=== PATIENT | female | born 1995 | race Two or more races ===

== ENCOUNTER 2021-07-03 10:45 | Outpatient (RCR) | payer OTHER, MEDICAID, SELFPAY | END 2021-09-12 20:41 | disposition home or self-care (01) | LOC: ANHOBOP 10:45 | PROVIDERS: Visit Provider Obstetrics & Gynecology | DX: O24.419 Gestational diabetes mellitus in pregnancy, unspecified control (principal); Z3A.00 Weeks of gestation of pregnancy not specified | CPT/HCPCS: 59025 ==

== ENCOUNTER 2021-08-19 06:14 | Inpatient (IN) | payer OTHER, SELFPAY ==
[2021-08-19] VITALS (159 sets, daily range): BP systolic 58–213; BP diastolic 14–181; PULSE 62–275; TEMP 36.6–37.1; O2SAT 95–100; BMI 33.5
--- OUTSIDE RECORDS SUMMARY | 2021-08-19 06:24 | XMS_ITS | Encounter Summary ---
:1995 Author Reason for Visit NST [id number] EDC 08/26/2021 done for GDM thyroid Assessment and Plan 1. Gestational diabetes mellitus , class A>1< ? non-stress test Discussion Note: None recorded.Patient educational handouts: No information available. Plan of Care Reminders Provider Appointments Ob Routine Diamond No 08/25/2021 MD Chu 1:45PM Lab None ? ? recorded. Referral None ? ? recorded. Procedures None ? ? recorded. Surgeries None ? ? recorded. Imaging Non-stress [place] 08/11/2021 Medications Name Start Date ? ? Humulin N NPH U-100 Insulin (isophane susp) 100 unit/m L subcutaneous ? INJECT 12 UNITS UNDER THE SKIN EVERY MORNING AND 52 U NITS AT HS insulin syringe U-100 with needle 0.5 mL 31 gauge x ? USE DIRECTED Medications Administered None recorded. Vitals Height Weight BMI Blood Pressure 5 ft 1.5 in 179 lbs 33.3 kg/m2 122/84 mm[Hg] Results Lab Results None recorded. Allergies None recorded. Problems Name Status Onset Date Source ? Active 04/16/2021 ? Hypothyroidism Active ? ?
--- OUTSIDE RECORDS SUMMARY | 2021-08-19 06:24 | XMS_ITS | Encounter Summary ---
:1995 Author Reason for Visit None recorded. Assessment and Plan 1. Gestational diabetes mellitus , class A>2< ? non-stress test Discussion Note: None recorded.Patient educational handouts: No information available. Plan of Care Reminders Provider Appointments Ob Routine D[place] No 08/25/2021 MD Chu 1:45PM Lab None ? ? recorded. Referral None ? ? recorded. Procedures None ? ? recorded. Surgeries None ? ? recorded. Imaging Non-stress [place] 08/04/2021 Medications Name Start Date ? ? Humulin N NPH U-100 Insulin (isophane susp) 100 unit/m L subcutaneous ? INJECT 12 UNITS UNDER THE SKIN EVERY MORNING AND 52 U NITS AT HS insulin syringe U-100 with needle 0.5 mL 31 gauge x 5/ 16 ? USE DIRECTED Medications Administered None recorded. Vitals None recorded. Results Lab Results None recorded. Allergies None recorded. Problems Name Status Onset Date Source ? Active 04/16/2021 ? Hypothyroidism Active ? ? Gestational Diabetes Mellitus Active ? ? Procedures Date Name Performed by ?
--- OUTSIDE RECORDS SUMMARY | 2021-08-19 06:24 | XMS_ITS | Encounter Summary ---
:1995 Author Reason for Visit OB visit Assessment and Plan 1. Gestational diabetes mellitus 2. Hypothyroidism Discussion Note: None recorded.Patient educational handouts: No information available. Plan of Care Reminders Provider Appointments Ob Routine Diamond No 08/25/2021 MD Chu 1:45PM Lab None ? ? recorded. Referral None ? ? recorded. Procedures None ? ? recorded. Surgeries None ? ? recorded. Imaging None ? ? recorded. Medications Name Start Date ? ? Humulin [...]
--- OUTSIDE RECORDS SUMMARY | 2021-08-19 06:24 | XMS_ITS | Encounter Summary ---
:1995 Author Reason for Visit OB visit Assessment and Plan 1. Routine care Discussion Note: None recorded.Patient educational handouts: No [...] BMI Blood Pressure 5 ft 1.5 in 177 lbs 32.9 kg/m2 115/79 mm[Hg] Results Lab Results None recorded. Allergies None recorded. Problems Name Status Onset Date Source ? Active 04/16/2021 ? Hypothyroidism Active ? ? Gestational Diabetes Mellitus Active ? ? Procedures Date Name Performed by ?
--- OUTSIDE RECORDS SUMMARY | 2021-08-19 06:24 | XMS_ITS | Encounter Summary ---
[...] ? recorded. Imaging Non-stress [facility] [facility] 08/07/2021 Medications Name Start Date ? ? Humulin N NPH U-100 Insulin (isophane susp) 100 unit/m L subcutaneous ? INJECT 12 UNITS UNDER THE SKIN EVERY MORNING AND 52 U NITS AT HS insulin syringe U-100 with needle 0.5 mL 31 gauge x 5/ 16 ? USE DIRECTED Medications Administered None recorded. Vitals Blood Pressure 120/84 mm[Hg] Results Lab Results None recorded. Allergies None recorded. Problems Name Status Onset Date Source ? Active 04/16/2021 ? Hypothyroidism Active ? ? Gestational Diabetes Mellitus Active ? ?
--- OUTSIDE RECORDS SUMMARY | 2021-08-19 06:24 | XMS_ITS | Encounter Summary ---
[...] ? recorded. Imaging Non-stress [facility] 08/14/2021 Medications Name Start Date ? ? Humulin [...]
--- OUTSIDE RECORDS SUMMARY | 2021-08-19 06:24 | XMS_ITS | Encounter Summary ---
[...] BMI Blood Pressure 5 ft 1.5 in 180 lbs 33.5 kg/m2 123/86 mm[Hg] Results Lab Results None recorded. Allergies None recorded. Problems Name Status Onset Date Source ? Active 04/16/2021 ? Hypothyroidism Active ? ? Gestational Diabetes Mellitus Active ? ? Procedures Date
--- OUTSIDE RECORDS SUMMARY | 2021-08-19 06:24 | XMS_ITS | Encounter Summary ---
[...] ? recorded. Imaging Non-stress [facility] 08/18/2021 Medications Name Start Date ? ? Humulin [...]
--- OUTSIDE RECORDS SUMMARY | 2021-08-19 06:24 | XMS_ITS | Encounter Summary ---
[...] ? recorded. Imaging Non-stress [facility] [facility] 07/31/2021 Medications Name Start Date ? ? Humulin N NPH U-100 Insulin (isophane susp) 100 unit/m L subcutaneous ? INJECT 12 UNITS UNDER THE SKIN EVERY MORNING AND 52 U NITS AT HS insulin syringe U-100 with needle 0.5 mL 31 gauge x 5/ 16 ? USE DIRECTED Medications Administered None recorded. Vitals Blood Pressure 124/85 mm[Hg] Results Lab Results None recorded. Allergies None recorded. Problems Name Status Onset Date Source ? Active 04/16/2021 ? Hypothyroidism Active ? ? Gestational Diabetes Mellitus Active ? ?
--- OUTSIDE RECORDS SUMMARY | 2021-08-19 06:24 | XMS_ITS ---
:1995 Author Care Team Providers Name Role Phone Diamond Sage Primary Care Provider Unavailable Allergies None recorded. Medications Name Status Start Date Stop Date ? ? ianbbxgkfe-dlldimirycwjz-lkesdbhr 50 Completed ? 07/07/2021 mg-325 mg-40 mg tablet fluconazole 150 mg tablet Completed ? 2020 Humulin N NPH U-100 Insulin (isophane susp) 100 unit/mL subcutan eous Active ? Not available INJECT 12 UNITS UNDER THE SKIN EVERY MORNING AND 52 UNITS AT HS insulin syringe U-100 with needle 0.5 mL 31 gauge x / Active ? Not available USE DIRECTED Vitamins and Minerals Completed ? 07/07/2021 zinc Completed ? 07/07/2021 Problems Name Status Onset Date Source ? Active 04/16/2021 ? Hypothyroidism Active ? ? Gestational Diabetes Mellitus Active ? ? Procedures Date Name Performed by ? 08/09/2019 Reconstruction of Nose Information not a vailable 04/17/2021 US, Obstetric, 2Nd or 3Rd Trimester Beryl whyte [address] [place] [address] ([address]) 05/12/2021 US, Obstetric, Follow-up [place] [address] ([address]) 06/30/2021 Non-stress Test [facility] [address]
--- OUTSIDE RECORDS SUMMARY | 2021-08-19 06:25 | XMS_ITS | Encounter Summary ---
[...] ? recorded. Imaging Non-stress [facility] [facility] 07/17/2021 Medications Name Start Date ? ? Humulin N NPH U-100 Insulin (isophane susp) 100 unit/m L subcutaneous ? INJECT 12 UNITS UNDER THE SKIN EVERY MORNING AND 52 U NITS AT HS insulin syringe U-100 with needle 0.5 mL 31 gauge x 5/ 16 ? USE DIRECTED Medications Administered None recorded. Vitals Blood Pressure 131/83 mm[Hg] Results Lab Results None recorded. Allergies None recorded. Problems Name Status Onset Date Source ? Active 04/16/2021 ? Hypothyroidism Active ? ? Gestational Diabetes Mellitus Active ? ?
--- OUTSIDE RECORDS SUMMARY | 2021-08-19 06:25 | XMS_ITS | Encounter Summary ---
[...] BMI Blood Pressure 5 ft 1.5 in 174 lbs 32.3 kg/m2 123/76 mm[Hg] Results Lab Results None recorded. Allergies None recorded. Problems Name Status Onset Date Source ? Active 04/16/2021 ? Hypothyroidism Active ? ? Gestational Diabetes Mellitus Active ? ? Procedures Date
--- OUTSIDE RECORDS SUMMARY | 2021-08-19 06:25 | XMS_ITS | Encounter Summary ---
[...] ? recorded. Imaging Non-stress [facility] 07/28/2021 Medications Name Start Date ? ? Humulin [...]
--- OUTSIDE RECORDS SUMMARY | 2021-08-19 06:25 | XMS_ITS | Encounter Summary ---
:1995 Author Reason for Visit OB visit [id number] Assessment and Plan 1. Routine care Discussion [...] BMI Blood Pressure 5 ft 1.5 in 176 lbs 32.7 kg/m2 127/88 mm[Hg] Results Lab Results None recorded. Allergies None recorded. Problems Name Status Onset Date Source ? Active 04/16/2021 ? Hypothyroidism Active ? ? Gestational Diabetes Mellitus Active ? ? Procedures Date Name Performed
--- OUTSIDE RECORDS SUMMARY | 2021-08-19 06:25 | XMS_ITS | Encounter Summary ---
:1995 Author Reason for Visit OB visit Assessment and Plan 1. Gestational diabetes mellitus 2. Hypothyroidism 3. Migraine without aura ? egawzaodjk-unmfofdzgdoue-n affeine 50 mg-325 mg-40 mg tablet 4. Candidal vulvovaginitis ? Diflucan 150 mg tablet Discussion Note: None recorded.Patient educational handouts: No [...] with needle 0.5 mL 31 gauge x 16 ? USE DIRECTED Medications Administered None recorded. Vitals Height Weight BMI Blood Pressure 5 ft 1.5 in 172 lbs 32 kg/m2 120/74 mm[Hg] Results Lab Results None recorded. Allergies None recorded. Problems Name Status
--- OUTSIDE RECORDS SUMMARY | 2021-08-19 06:25 | XMS_ITS | Encounter Summary ---
:1995 Author Reason for Visit NST [id number] EDC 08/26/2021 Assessment and Plan 1. Gestational diabetes mellitus , class A>1< ? non-stress test Discussion Note: None recorded.Patient educational handouts: No information available. Plan of Care Reminders Provider Appointments Ob Routine Diamond No 08/25/2021 MD Chu 1:45PM Lab None ? ? recorded. Referral None ? ? recorded. Procedures None ? ? recorded. Surgeries None ? ? recorded. Imaging Non-stress [facility] [facility] 07/07/2021 Medications Name Start Date ? ? Humulin N NPH U-100 Insulin (isophane susp) 100 unit/m L subcutaneous ? INJECT 12 UNITS UNDER THE SKIN EVERY MORNING AND 52 U NITS AT HS insulin syringe U-100 with needle 0.5 mL 31 gauge x 5/ 16 ? USE DIRECTED Medications Administered None recorded. Vitals Height Blood Pressure 5 ft 1.5 in 132/76 mm[Hg] Results Lab Results None recorded. Allergies None recorded. Problems Name Status Onset Date Source ? Active 04/16/2021 ? Hypothyroidism Active ? ? Gestational Diabetes Mellitus Act
--- OUTSIDE RECORDS SUMMARY | 2021-08-19 06:25 | XMS_ITS | Encounter Summary ---
[...] BMI Blood Pressure 5 ft 1.5 in 175 lbs 32.5 kg/m2 121/77 mm[Hg] Results Lab Results None recorded. Allergies None recorded. Problems Name Status Onset Date Source ? Active 04/16/2021 ? Hypothyroidism Active ? ? Gestational Diabetes Mellitus Active ? ? Procedures Date
--- OUTSIDE RECORDS SUMMARY | 2021-08-19 06:25 | XMS_ITS | Encounter Summary ---
:1995 Author Reason for Visit None recorded. Assessment and Plan 1. Uterine size for dates discre pancy ? US, obstetric, follow-up Discussion Note: None recorded.Patient educational handouts: No information available. Plan of Care Reminders Provider Appointments Ob Routine Diamond No 08/25/2021 MD Chu 1:45PM Lab None ? ? recorded. Referral None ? ? recorded. Procedures None ? ? recorded. Surgeries None ? ? recorded. Imaging [facility], Follow-up 07/28/2021 Medications Name Start Date ? ? [...]
--- OUTSIDE RECORDS SUMMARY | 2021-08-19 06:25 | XMS_ITS | Encounter Summary ---
:1995 Author Reason for Visit OB visit Assessment and Plan 1. Routine care 2. Gestational diabetes mellitus Discussion Note: None recorded.Patient educational handouts: No [...] BMI Blood Pressure 5 ft 1.5 in 171 lbs 31.8 kg/m2 121/84 mm[Hg] Results Lab Results None recorded. Allergies None recorded. Problems Name Status Onset Date Source ? Active 04/16/2021 ? Hypothyroidism Active ? ? Gestational Diabetes Mellitus Active ? ? Procedures Date
--- OUTSIDE RECORDS SUMMARY | 2021-08-19 06:25 | XMS_ITS | Encounter Summary ---
[...] ? recorded. Imaging Non-stress [facility] 07/21/2021 Medications Name Start Date ? ? Humulin [...]
--- OUTSIDE RECORDS SUMMARY | 2021-08-19 06:25 | XMS_ITS | Encounter Summary ---
[...] ? recorded. Imaging Non-stress [facility] 06/30/2021 Medications Name Start Date ? ? Humulin [...]
--- OUTSIDE RECORDS SUMMARY | 2021-08-19 06:25 | XMS_ITS | Encounter Summary ---
[...] ? recorded. Imaging Non-stress [facility] [facility] Test 07/24/2021 Medications Name Start Date ? ? Humulin N NPH U-100 Insulin (isophane susp) 100 unit/m L subcutaneous ? INJECT 12 UNITS UNDER THE SKIN EVERY MORNING AND 52 U NITS AT HS insulin syringe U-100 with needle 0.5 mL 31 gauge x ? USE DIRECTED Medications Administered None recorded. Vitals Blood Pressure 125/83 mm[Hg] Results Lab Results None recorded. Allergies None recorded. Problems Name Status Onset Date Source ? Active 04/16/2021 ? Hypothyroidism Active ? ? Gestational Diabetes Mellitus Active ? ?
--- OUTSIDE RECORDS SUMMARY | 2021-08-19 06:25 | XMS_ITS | Encounter Summary ---
[...] ? recorded. Imaging Non-stress [facility] Test 07/14/2021 Medications Name Start Date ? ? Humulin [...]
--- OUTSIDE RECORDS SUMMARY | 2021-08-19 06:26 | XMS_ITS | Encounter Summary ---
:1995 Author Reason for Visit OB visit 27W2D Assessment and Plan 1. Routine care Discussion [...] BMI Blood Pressure 5 ft 1.5 in 168 lbs 31.2 kg/m2 109/40 mm[Hg] Results Lab Results None recorded. Allergies None recorded. Problems Name Status Onset Date Source ? Active 04/16/2021 ? Hypothyroidism Active ? ? Gestational Diabetes Mellitus Active ? ? Procedures Date Name Performed
--- NOTE | 2021-08-19 07:15 | LDADM ---
This patient, Anabel Montes, was admitted to Labor/Delivery/Recovery 107 on 08/19/21 at 06:14. Plans for labor, pain management and were discussed with patient. Patient/family oriented to hospital policies and general routines including ID bracelet, bed and alarms, visiting hours, pain management, procedures, bathroom and other care routines, personal items, smoking policy, room service/diet and guest tray routines, infant security routines, and visiting hours. Patient/Family are encouraged to report perceived risks to care and to ask questions if they do not understand what they are told or what they should do. See OBIX for further documentation.
--- NOTE | 2021-08-19 07:30 | PM.IMHP ---
H&P: HPI History of Present Illness Date/Time: 08/19/21 07:30 Chief Complaint: induction of labor Narrative: Anabel is a 25yo G1 at 39 weeks here for IOL- either early GDM or more likely DM2. Controlled on insulin this , controlled well in the third trimester. Normal growth. no other complications. Review of Systems Review of Systems: All systems reviewed & are unremarkable except as noted in HPI and below PMFSH Family History Family History (Updated 08/01/21 @ 09:42 by Berenice Lopez RN) Father Diabetes mellitus Social History Social History Substance use: never Spiritual care concerns: No Meds Home Medications and Allergies Home Medications Medication Instructions Recorded Confirmed Type No Home Medications 08/01/21 08/01/21 History Allergies Allergy/AdvReac Type Severity Reaction Status Date / Time No Known Allergies Allergy Verified 08/01/21 09:42 Exam Const: General: no acute distress Resp: Effort & Inspection: normal respiratory effort Auscultation: clear to auscultation bilaterally Cardio: Rate: regular rate Rhythm: regular rhythm GI: GI Palp: Yes Soft to palpation Extrem: General: normal to inspection Assessment and Plan Additional Plan Here for induction of labor-cervidil to start GBS neg FHT category 1 BS fasting and 1hr pp while on cervidil, q 4 hours latent labor on pit, q2 hours active.
[2021-08-19] MEDS: DINOPROSTONE 10 MG VAG INSERT VAGINAL (07:36)
[2021-08-19 07:39] LABS: Basophils Percent Auto 0.2 % (0.2-1.2); Eosinophils Absolute Auto 0.1 K/mm3 (0-0.3); Eosinophils Percent Auto 0.9 % (0-4.4); Hematocrit 39.4 % (37.0-47.0); Hemoglobin 13.3 g/dL (12.0-15.0); Immature Granulocyte Absolute 0.06 K/mm3 (0.00-0.031); Immature Granulocyte Percent A 0.6 % (0-0.5); Lymphocytes Percent Auto 29.3 % (18.3-44.2); Mean Corpuscular HGB Conc 33.8 g/dl (32-36); Mean Corpuscular Hemoglobin 27.2 pg (26-34); Mean Corpuscular Volume 80.6 fl (80-100); Monocytes Absolute Auto 0.6 K/mm3 (0.1-0.6); Monocytes Percent Auto 5.2 % (2.6-8.5); Neutrophils Absolute Auto 6.8 K/mm3 (1.3-6.7); Neutrophils Percent Auto 63.8 % (45.5-73.1); Platelet Count Result 299 k/mm3 (150-375); Red Blood Count 4.89 M/mm3 (4.2-5.4); Red Cell Distribution Width 14.4 % (11.5-14.5); White Blood Count 10.6 K/mm3 (4.5-10.0)
[2021-08-19 12:14] LABS: Glucose Point of Care 105 mg/dl (65-105)
[2021-08-19] MEDS: fentaNYL CITRATE INJ (*CRX) 100 MCG/2 ML VIAL 50 MCG IV PUSH ×2 (13:46→15:21)
[2021-08-19 14:33] LABS: Rapid Plasma Reagin Non-Reactive (NonReactive)
[2021-08-19] MEDS: LACTATED RINGERS 1,000 ML 125 ML IV CONT ×3 (15:36→19:25)
[2021-08-19 16:13] LABS: Glucose Point of Care 80 mg/dl (65-105)
[2021-08-19 20:34] LABS: Glucose Point of Care 88 mg/dl (65-105)
[2021-08-20] VITALS (110 sets, daily range): BP systolic 99–150; BP diastolic 54–121; PULSE 66–137; RESP 16–18; TEMP 36.6–38.3; O2SAT 93–100
[2021-08-20] MEDS: LACTATED RINGERS 1,000 ML 125 ML IV CONT (00:12)
[2021-08-20 00:20] LABS: Glucose Point of Care 90 mg/dl (65-105)
[2021-08-20 03:34] LABS: Glucose Point of Care 77 mg/dl (65-105)
[2021-08-20] MEDS: AMPICILLIN 2 GM/NS 100 ML 2 GM/100 ML BAG IVPB (04:32)
[2021-08-20] MEDS: GENTAMICIN 60 MG/50 ML NS 60 MG/50 ML BAG 100 MG IVPB (05:00)
[2021-08-20] MEDS: OXYTOCIN 30 UNITS/NS 500 ML 30 UNITS/500 ML BAG IV CONT (05:24)
--- NOTE | 2021-08-20 06:37 | P.PCNOB_ITS ---
OB - Delivery Note Procedure Delivery date: 08/20/21 Procedure: Vacuum assisted vaginal delivery events: Gestational Diabetes and Meconium Stained Fluid Intrapartal events: Chorioamnionitis Induction method: AROM, per pitocin protocol and per cervidil protocol Delivery monitor: external FHT and external uterine Route of delivery: vacuum extraction Indication for instrumentation: nonreassuring FHR tracing (and maternal exhaustion) Laceration Description: Perineal - 2nd Degree Delivery repair: vicryl Specimen: No Quantitative Blood Loss (ml): 350 Anesthesia type: Epidural Disposition: floor Narrative: Following about 2 hours of pushing, baby was tachycardic with periods of minimal variability and Anabel developed a low grade fever. She pushed baby to +2 station. Decision was made to use the Kiwi vacuum to shorten second stage of labor. She was consented after discussing the risks of a vacuum delivery. The baby was OA at +2 station. The Kiwi was used over two contractions with one pop-off. With adequate expulsive efforts by the mother, the baby's head was delivered OA. Copious meconium was noted at time of delivery. The baby's anterior shoulder was delivered under the pubic symphysis without difficulty. The posterior shoulder and the rest of the baby delivered without difficulty. The was placed on the mothers chest and suctioned and stimulated. The cord was clamped and cut after 30 seconds. Mother and baby both stable. [place] Baby Date of : 08/20/21 Time of : 06:13 Weeks of gestation at delivery: 39 Infant gender: Female Weight (pounds): 6 Weight (ounces): 3 presentation: vertex Placenta delivery description: Spontaneous cord vessel description: 3 Vessels and Delayed Cord Clamping score one minute: 8 score five minutes: 9
[2021-08-20] MEDS: OXYTOCIN 30 UNITS/NS 500 ML 30 UNITS/500 ML BAG 125 UNITS IV CONT (06:57)
[2021-08-20] MEDS: IBUPROFEN 600 MG TABLET PO ×2 (07:33→17:13)
[2021-08-20] MEDS: WITCH HAZEL 40 PADS 1 PAD TOPICAL (07:34)
[2021-08-20] MEDS: BENZOCAINE 20% AER SPR (*SP) 56 GM CAN 1 SPRAY TOPICAL (07:34)
--- NOTE | 2021-08-20 10:32 | PC.NURSE ---
Patient transferred to post room #288 per wheelchair. Support person present. Oriented to unit, room, information board, rooming in, admission packet and security measures. Patient verbalizes understanding.
--- NOTE | 2021-08-20 13:03 | PC.NURSE ---
1130 - Consulted with patient, reviewed infant feeding cues, frequencies, duration of feedings, feeding elimination flow sheet, and signs of adequate intake. Demonstrated stimulation techniques to wake for feeding. Assisted with to skin to skin. Reviewed positioning/alignment (using the handout and mom/baby guide), holding breast and asymmetrical latch on. Infant was unable to latch correctly sleepy and showing no feeding cues. 1140 - Reviewed hand expression demonstration with breast tool/handout. Mother expressed colostrum and rubbed it under infants tongue/ inside mouth. Instructed mother to call out for RN assistance when she visualizes early feeding cues, if she is unable to latch infant for feeding or she has discomfort with nursing. Instructed feeding should be initiated three hours from start of last feeding or if feeding cues are noted before. Mother voiced understanding of information shared. 1210 - Infant is skin to skin sleepy with no feeding cues. 1255 - Mom called RN to the room related to seeing feeding cues. Assisted minimally with infant to the right breast in the [place] position. Reviewed positioning/alignment, holding breast and asymmetrical latch on. was able to latch correctly more with self-attached method than collaborative feeding. Infant nursed eagerly, with steady draws and occasional swallowing noted. Reviewed signs of a correct latch, effective nursing and suck swallow ratio. Infant was able to maintain latch without discomfort to mother. Nipple care reviewed. Instructed mother to call out for RN assistance for assistance offering the other breast, if she is unable to latch for feeding or she has discomfort with nursing. Instructed feeding should be initiated three hours from start of last feeding or if feeding cues are noted before. Mother/father voiced understanding of information shared. 1300 - Reported to primary RN.
--- NOTE | 2021-08-20 14:15 | PC.NURSE ---
1330 - Patient called for assistance with offering the the other breast. RN reviewed feeding cues. Demonstrated stimulation techniques to wake for feeding. Assisted with to breast, then skin to skin as was not effectively demonstrating feeding cues. Reviewed positioning/alignment, holding breast and asymmetrical latch on. was unable to latch correctly. Nipple care reviewed. Instructed mother to call out for RN assistance when she visualizes feeding cues, if she is unable to latch for feeding or she has discomfort with nursing. Instructed feeding should be initiated three hours from start of last feeding or if feeding cues are noted before. Mother voiced understanding of information shared.
--- NOTE | 2021-08-20 15:57 | PC.NURSE ---
1545 - Consulted with patient, reviewed infant feeding cues, frequencies, duration of feedings, feeding elimination flow sheet, and signs of adequate intake. Demonstrated stimulation techniques to wake infant for feeding. Assisted with infant to breast. Reviewed positioning/alignment, holding breast and asymmetrical latch on. was unable to latch correctly in the side lying position. Reviewed signs of a correct latch, effective nursing and suck swallow ratio. Infant was unable to maintain latch without tongue sucking. Nipple care reviewed. Instructed mother to call out for RN assistance if she is unable to latch infant for feeding or she has discomfort with nursing. placed skin 2 skin. Instructed feeding should be initiated three hours from start of last feeding or if feeding cues are noted before. Mother and father voiced understanding of information shared. Reported to primary RN that infant was skin to skin.
[2021-08-20] MEDS: DOCUSATE SODIUM 100 MG CAPSULE PO (17:14)
[2021-08-20] MEDS: LANOLIN (LANSINOH) 7.5 GM CREAM 1 APPLIC TOPICAL (17:14)
[2021-08-21 00:35] VITALS: BP 131/80; PULSE 90; RESP 16; TEMP 37
[2021-08-21 05:20] VITALS: BP 119/68; PULSE 98; RESP 16; TEMP 37.6
[2021-08-21] MEDS: IBUPROFEN 600 MG TABLET PO ×2 (05:20→19:50)
[2021-08-21 05:21] LABS: Hematocrit 31.4 % (37.0-47.0); Hemoglobin 10.6 g/dL (12.0-15.0)
[2021-08-21 07:55] VITALS: BP 104/74; PULSE 95; RESP 20; TEMP 36.6
--- NOTE | 2021-08-21 07:56 | PM.OBPNVD ---
OB - PN: Subj Subjective Date/time seen: 08/21/21 07:56 Patient comments: no complaints baby status: doing well OB - PN: Obj Data Labs CBC & Chem 7: 08/21/21 05:15 Labs: Laboratory Results - last 24 hr 08/21/21 05:15 Hgb 10.6 L Hct 31.4 L OB - PN A/P Plan day: 1 Plan: routine care Time Spent With Patient Time: Total time spent is greater than 50% in coordination of care (as documented) at patient's floor/unit and/or counseling patient: Time with patient: less than 15 minutes Review of Systems Review of Systems: All systems reviewed & are unremarkable except as noted in HPI and below Exam Narrative: Fundus firm and vaginal flow controlled. No lower ext redness, warmth, or edema. Negative homans. Const: General: comfortable Chest: Breast/axilla inspection: normal inspection of the breasts Resp: Effort & Inspection: normal respiratory effort Cardio: Rate: regular rate GI: GI Palp: Yes Soft to palpation Psych: Appearance: grossly normal Affect: normal affect Attitude: cooperative Thought content: Yes Normal thought content present Judgement: Good judgement present (Psych)
[2021-08-21] MEDS: DOCUSATE SODIUM 100 MG CAPSULE PO ×2 (10:00→17:15)
[2021-08-21] MEDS: MULTIVIT/MIN/PREN/FOL AC/IRON TABLET 1 TAB PO (10:00)
[2021-08-21] MEDS: WITCH HAZEL 40 PADS 1 PAD TOPICAL (19:50)
[2021-08-21 19:56] VITALS: BP 122/80; PULSE 96; RESP 18; TEMP 36.9
[2021-08-22] MEDS: IBUPROFEN 600 MG TABLET PO (06:25)
[2021-08-22 07:25] VITALS: BP 104/62; PULSE 72; RESP 16; TEMP 36.8; O2SAT 100
--- NOTE | 2021-08-22 08:01 | P.PNOB_ITS ---
OB - PN: Subj Subjective Date/time seen: 08/22/21 08:01 Patient comments: no complaints and pain well controlled baby status: doing well [place] feeding status: breast and bottle feeding OB - PN: Obj Data Labs CBC & Chem 7: 08/21/21 05:15 OB - PN A/P Assessment and Plan (1) , delivered: Code(s): O80 - Encounter for full-term uncomplicated delivery Status: Acute Plan day: 2 Plan: routine care and discharge home Comments: DC instructions discussed Time Spent With Patient Time: Total time spent is greater than 50% in coordination of care (as documented) at patient's floor/unit and/or counseling patient: Time with patient: less than 15 minutes Exam Narrative: NAD abdomen soft, nontender, fundus firm below the umbilicus Extremities nontender, 1+ edema
--- NOTE | 2021-08-22 08:05 | PM.OBDSVD ---
DS: Admitting Diagnosis Discharge Date 08/22/21 Admitting Diagnosis GDM, term IUP DS: Discharge Diagnosis Discharge Diagnosis (1) , delivered: Code(s): O80 - Encounter for full-term uncomplicated delivery Status: Acute OB - DS: Summary Hospital Course Hospital Course: Anabel had an uncomplicated induction, vacuum assisted vaginal delivery, and course. OB Procedures : NST and Ultrasound OB Procedures Intrapartum: Vacuum extraction OB Procedures: : None Peripartum Data Laceration Description: Perineal - 2nd Degree complications: none Status at Discharge Functional status at discharge: independent ambulation Time Spent with Patient Time attestation: Total time spent providing and/or coordinating discharge services: Exam Narrative: NAD abdomen soft, appropriately tender Ext non tender, 1+ edema Discharge Plan Discharge Attending physician on discharge: Diamond Sage Discharging Clinician: Diamond Sage Anticipated Discharge Date/Time: 08/22/21 08:04 Patient Disposition: Home, Self-Care Activity: may shower and pelvic rest Diet: as tolerated Discharge Instructions: ibuprofen 600mg every 6 hours as needed for pain Patient Instructions: Antibiotic Form Stand Alone Forms: General Discharge Information Follow-up/Referrals: Diamond Sage MD [Physician] - 4 Weeks Discharge Medications: Discontinued Humulin N NPH U-100 Insulin 100 unit/mL suspension 52 unit SUBCUT DAILY RF: 0 Humulin 70/30 U-100 Insulin 12 units QAM RF: 0 Date of admission: 08/19/21 06:14 Primary Care Provider: [facility] Admitting Provider: Diamond Sage Attending physician on admission: Diamond Sage Condition: Stable
--- NOTE | 2021-08-22 09:00 | PC.NURSE ---
Patient viewed the discharge video Mother & Baby Care, The First Two Weeks . Patient was given the opportunity and encouraged to ask questions. Patient verbalized understanding of information shared and has been given the mother/baby guide for home reference.
[2021-08-22] MEDS: MULTIVIT/MIN/PREN/FOL AC/IRON TABLET 1 TAB PO (09:13)
[2021-08-22] MEDS: DOCUSATE SODIUM 100 MG CAPSULE PO (09:13)
--- NOTE | 2021-08-22 15:10 | PC.NURSE ---
1030 - Mother verbalizes she is occasionally pumping and feeding the the bottle. She states she might want to attempt again at some point. Mother request a pump for home use. She is feeding as required and waking infant to feed if needed. Infant has had eight feedings in the past 24 hours, and is currently meeting outcomes for weight, output, jaundice and feeding frequencies. Encouraged feeding infant every 3-4 hours if formula feeding and 2-3 hours if . Mother did not pump much last night and states she hasn't pumped this morning because she was eating breakfast. Mother states she wants to pump at home and feed the baby. Reviewed transition to breast milk, signs of adequate intake, improving milk transfer/volume and engorgement/relief. Instructed to call ICP if intake/output less than required. Reviewed community resources on the [facility] website, feeding sheet and resource Mom/Baby guide. Information on outpatient services provided. Mother has no further questions at this time. 1150 - Breast pump provided due to moms desire to make human milk to feed the infant. Instructions given on breast pump care and usage, pumping schedule, nipple care, collection and storage of breast milk. RN referred to mom/baby guide. Encouraged xzej-ma-gsor, breast massage, nipple stroking/stretching and hand expression to stimulate supply. Pumping schedule reviewed and will be documented on feeding sheet. Assessed patient for correct flange size, placement and draw. Patient verbalizes and demonstrates understanding of instructions after reinforcements to pump breast for milk production.
--- NOTE | 2021-08-22 15:20 | PC.NURSE ---
1200 - Reported to primary RN.
== END 2021-08-22 12:00 | disposition home or self-care (01) | DRG 805 ==
LOC: ANHLDR 06:23 → ANHOB2 08-20 10:36
PROVIDERS: Admitting Provider Obstetrics & Gynecology; Visit Provider Obstetrics & Gynecology
DX: O75.2 Pyrexia during labor, not elsewhere classified (principal); O41.1230 Chorioamnionitis, third trimester, not applicable or unspecified; Z37.0 Single live birth; O24.424 Gestational diabetes mellitus in childbirth, insulin controlled; O76 Abnormality in fetal heart rate and rhythm complicating labor and delivery; O70.1 Second degree perineal laceration during delivery; O77.0 Labor and delivery complicated by meconium in amniotic fluid; O63.1 Prolonged second stage (of labor); Z3A.39 39 weeks gestation of pregnancy; Z23 Encounter for immunization
CPT/HCPCS: 36415; 82948; 85014; 85018; 85025; 86592; 86850; 86900; 86901; 90471; 90653; A9270; G0008; J0131; J0290; J1580; J2590; J2795; J3010; J7120

== ENCOUNTER 2021-11-17 12:00 | Outpatient (CLI) | payer OTHER, SELFPAY ==
[2021-11-17 12:33] LABS: Hemoglobin A1C 5.3 % (<5.7)
[2021-11-17 12:45] LABS: Alanine Aminotransferase 24 U/L (4-35); Albumin Level 4.3 g/dL (3.5-5.1); Alkaline Phosphatase 77 U/L (38-126); Anion Gap 8 mmol/L (8-16); Aspartate Amino Transferase 25 U/L (14-36); Bilirubin,Total 0.4 mg/dL (0.2-1.3); Blood Urea Nitrogen 7 mg/dL (7-17); Calcium 8.6 mg/dL (8.4-10.2); Carbon Dioxide 23 mmol/L (22-30); Chloride 104 mmol/L (98-107); Estimated Glomerular Filt Rate > 60; Glucose 115 mg/dL (65-110); Sodium 135 mmol/L (137-145)
== END 2021-11-17 12:01 | disposition home or self-care (01) ==
LOC: ANHLAB 12:02
PROVIDERS: PCP Family Medicine; Visit Provider Physician Assistant Medical
DX: O24.419 Gestational diabetes mellitus in pregnancy, unspecified control (principal); Z3A.00 Weeks of gestation of pregnancy not specified
CPT/HCPCS: 36415; 80053; 83036

== ENCOUNTER 2022-03-06 13:30 | Outpatient (CLI) | payer OTHER, SELFPAY ==
[2022-03-06 13:59] LABS: Basophils Percent Auto 0.1 % (0.2-1.2); Eosinophils Absolute Auto 0.1 K/mm3 (0-0.3); Eosinophils Percent Auto 0.7 % (0-4.4); Hematocrit 36.2 % (37.0-47.0); Hemoglobin 12.4 g/dL (12.0-15.0); Immature Granulocyte Absolute 0.05 K/mm3 (0.00-0.031); Immature Granulocyte Percent A 0.4 % (0-0.5); Lymphocytes Absolute Auto 3.17 K/mm3 (0.9-3.2); Lymphocytes Percent Auto 27.9 % (18.3-44.2); Mean Corpuscular HGB Conc 34.3 g/dl (32-36); Mean Corpuscular Hemoglobin 28.8 pg (26-34); Mean Platelet Volume 10.3 fl (7.4-10.4); Monocytes Absolute Auto 0.5 K/mm3 (0.1-0.6); Monocytes Percent Auto 4.4 % (2.6-8.5); Neutrophils Absolute Auto 7.5 K/mm3 (1.3-6.7); Neutrophils Percent Auto 66.5 % (45.5-73.1); Platelet Count Result 337 k/mm3 (150-375); Red Blood Count 4.31 M/mm3 (4.2-5.4); Red Cell Distribution Width 13.9 % (11.5-14.5); White Blood Count 11.4 K/mm3 (4.5-10.0)
[2022-03-06 14:10] LABS: Alanine Aminotransferase 15 U/L (6-35); Albumin Level 3.7 g/dL (3.5-5.1); Alkaline Phosphatase 78 U/L (38-126); Anion Gap 9 mmol/L (8-16); Aspartate Amino Transferase 17 U/L (14-36); Bilirubin,Total 0.2 mg/dL (0.2-1.3); Blood Urea Nitrogen 6 mg/dL (7-17); Calcium 8.2 mg/dL (8.4-10.2); Carbon Dioxide 22 mmol/L (22-30); Chloride 103 mmol/L (98-107); Estimated Glomerular Filt Rate > 60; Glucose 122 mg/dL (65-110); Potassium 3.6 mmol/L (3.4-5.0); Sodium 134 mmol/L (137-145)
[2022-03-06 16:13] LABS: Total Protein Urine Random < 5 mg/dL; Ur Ttl Prot Creatinine Ratio < 0.05 mg/mg (0-0.20)
== END 2022-03-06 13:31 | disposition home or self-care (01) ==
PROVIDERS: PCP Family Medicine; Visit Provider Obstetrics & Gynecology
DX: Z34.93 Encounter for supervision of normal pregnancy, unspecified, third trimester (principal); Z3A.30 30 weeks gestation of pregnancy
CPT/HCPCS: 36415; 80053; 82570; 84156; 85025

== ENCOUNTER 2022-05-28 15:51 | Outpatient (RCR) | payer OTHER, SELFPAY ==
[2022-05-28 18:17] VITALS: BP 101/68
== END 2022-07-10 07:39 | disposition home or self-care (01) ==
LOC: ANHOBOP 15:51
PROVIDERS: PCP Family Medicine; Visit Provider Obstetrics & Gynecology
DX: O24.419 Gestational diabetes mellitus in pregnancy, unspecified control (principal); Z3A.34 34 weeks gestation of pregnancy
CPT/HCPCS: 59025

== ENCOUNTER 2022-06-29 06:16 | Inpatient (IN) | payer OTHER, SELFPAY ==
[2022-06-29] VITALS (168 sets, daily range): BP systolic 83–134; BP diastolic 36–96; PULSE 42–188; RESP 16; TEMP 36.4–37.2; O2SAT 82–100; BMI 32.0
--- OUTSIDE RECORDS SUMMARY | 2022-06-29 06:23 | XMS_ITS | Encounter Summary ---
:1995 Author Care Team Providers Name Role Phone Josérandi Aguilar MD Primary Care Provider [phone] Reason for Visit NST Assessment and Plan 1. Gestational diabetes mellitus ? non-stress test Discussion Note: None recorded.Patient educational handouts: No information available. Plan of Care Reminders Provider Appointments None recorded. ? ? Lab None recorded. ? ? Referral None recorded. ? ? Procedures None recorded. ? ? Surgeries None recorded. ? ? Imaging Non-stress Test 06/11/2022 [place] Medications Name Start Date ? ? Baqsimi 3 mg/actuation nasal spray ? erythromycin 5 mg/gram (0.5 %) eye ointment ? APPLY INTO EACH EYE ONCE DAILY FOR 7 DAYS Humalog KwikPen (U-100) Insulin 100 unit/mL subcutaneo us ? Lantus Solostar U-100 Insulin 100 unit/mL (3 mL) subcu taneous pen ? nitrofurantoin monohydrate/macrocrystals 100 mg capsul e ? Take 1 capsule every 12 hours by oral route. ? Medications Administered None recorded. Vitals Height 5 ft 1.5 in Results Lab Results None recorded. Allergies Code Code System Name Reaction Severity Onset NKDA ? ? ? Problems Name Status Onset Date Source ? Active 02/23/2022 ? Hypothyroidism Active ? ? Late Entry into Care Active ? ? and Type 2 Diabetes Mellitus Active ? ? Procedures Date Name Performed by ?
--- OUTSIDE RECORDS SUMMARY | 2022-06-29 06:23 | XMS_ITS | Encounter Summary ---
:1995 Author Care Team Providers Name Role Phone Josérandi Aguilar MD Primary Care Provider [phone] Reason for Visit None recorded. Assessment and Plan 1. Pre-existing type 2 diabetes mellitu s in ? non-stress test Discussion Note: None recorded.Patient educational handouts: No information available. Plan of Care Reminders Provider Appointments None recorded. ? ? Lab None recorded. ? ? Referral None recorded. ? ? Procedures None recorded. ? ? Surgeries None recorded. ? ? Imaging Non-stress Test 06/25/2022 [place] Medications Name Start Date ? ? Baqsimi [...] route. ? Medications Administered None recorded. Vitals Blood Pressure 121/82 mm[Hg] Results Lab Results None recorded. Allergies Code Code System Name Reaction Severity Onset NKDA ? ? ? Problems Name Status Onset Date Source ? Active 02/23/2022 ? Hypothyroidism Active ? ? Late Entry into Care Active ? ? and Type 2 Diabetes Mellitus Active ? ? Procedures Date Name Performed by
--- OUTSIDE RECORDS SUMMARY | 2022-06-29 06:23 | XMS_ITS | Encounter Summary ---
:1995 Author Care Team Providers Name Role Phone Josérandi Aguilar MD Primary Care Provider [phone] Reason for Visit OB visit Assessment and Plan 1. and type 2 diabetes mellit us 2. Pediculosis capitis Discussion Note: None recorded.Patient educational handouts: No information available. Plan of Care Reminders Provider Appointments None recorded. ? ? Lab None recorded. ? ? Referral None recorded. ? ? Procedures None recorded. ? ? Surgeries None recorded. ? ? Imaging None recorded. ? ? Medications Name Start Date ? ? Baqsimi [...] ? Medications Administered None recorded. Vitals Height Weight BMI Blood Pressure 5 ft 1.5 in 175 lbs 32.5 kg/m2 116/76 mm[Hg] Results Lab Results None recorded. Allergies Code Code System Name Reaction Severity Onset NKDA ? ? ? Problems Name Status Onset Date Source ? Active 02/23/2022 ? Hypothyroidism Active ? ? Late Entry into Care Active ? ? and Type 2 Diabetes Mellitus Active ? ? Procedures Date Name
--- OUTSIDE RECORDS SUMMARY | 2022-06-29 06:23 | XMS_ITS | Encounter Summary ---
:1995 Author Care Team Providers Name Role Phone Josérandi Aguilar MD Primary Care Provider [phone] Reason for Visit None recorded. Assessment and Plan 1. Gestational diabetes mellitus, class A>1< ? US, obstetric, follow-up Discussion Note: None recorded.Patient educational handouts: No information available. Plan of Care Reminders Provider Appointments None recorded. ? ? Lab None recorded. ? ? Referral None recorded. ? ? Procedures None recorded. ? ? Surgeries None recorded. ? ? Imaging US, Obstetric, Follow-up 06/18/2022 [place] Medications Name Start Date ? ? Baqsimi [...] route. ? Medications Administered None recorded. Vitals None recorded. Results Lab Results None recorded. Allergies Code Code System Name Reaction Severity Onset NKDA ? ? ? Problems Name Status Onset Date Source ? Active 02/23/2022 ? Hypothyroidism Active ? ? Late Entry into Care Active ? ? and Type 2 Diabetes Mellitus Active ? ? Procedures Date Name Performed by ? 08/09/2019 Reconstruction of Nose Information not a vai
--- OUTSIDE RECORDS SUMMARY | 2022-06-29 06:23 | XMS_ITS | Encounter Summary ---
:1995 Author Care Team Providers Name Role Phone Josérandi Aguilar MD Primary Care Provider [phone] Reason for Visit OB visit Assessment and Plan 1. and type 2 diabetes mellit us 2. Late entry into care Discussion Note: None recorded.Patient educational handouts: [...] ft 1.5 in 174 lbs 32.3 kg/m2 108/74 mm[Hg] Results Lab Results None recorded. Allergies Code Code System Name Reaction Severity Onset NKDA ? ? ? Problems Name Status Onset Date Source ? Active 02/23/2022 ? Hypothyroidism Active ? ? Late Entry into Care Active ? ? and Type 2 Diabetes Mellitus Active ? ? Procedures Date
--- OUTSIDE RECORDS SUMMARY | 2022-06-29 06:23 | XMS_ITS | Encounter Summary ---
:1995 Author Care Team Providers Name Role Phone Josérandi Aguilar MD Primary Care Provider [phone] Reason for Visit None recorded. Assessment and Plan 1. Pre-existing type 2 diabetes mellitu s in ? non-stress test Discussion Note: None recorded.Patient educational handouts: No information available. Plan of Care Reminders Provider Appointments None recorded. ? ? Lab None recorded. ? ? Referral None recorded. ? ? Procedures None recorded. ? ? Surgeries None recorded. ? ? Imaging Non-stress Test 06/08/2022 [place] Medications Name Start Date ? ? Baqsimi [...]
--- OUTSIDE RECORDS SUMMARY | 2022-06-29 06:23 | XMS_ITS | Encounter Summary ---
:1995 Author Care Team Providers Name Role Phone Josérandi Aguilar MD Primary Care Provider [phone] Reason for Visit None recorded. Assessment and Plan 1. Pre-existing type 2 diabetes mellitu s in ? non-stress test Discussion Note: None recorded.Patient educational handouts: No information available. Plan of Care Reminders Provider Appointments None recorded. ? ? Lab None recorded. ? ? Referral None recorded. ? ? Procedures None recorded. ? ? Surgeries None recorded. ? ? Imaging Non-stress Test 06/22/2022 [place] Medications Name Start Date ? ? Baqsimi [...]
--- OUTSIDE RECORDS SUMMARY | 2022-06-29 06:23 | XMS_ITS | Encounter Summary ---
:1995 Author Care Team Providers Name Role Phone Josérandi Aguilar MD Primary Care Provider [phone] Reason for Visit OB visit Assessment and Plan 1. Late entry into care 2. and type 2 diabetes mellit us Discussion Note: None recorded.Patient educational handouts: No [...] ft 1.5 in 177 lbs 32.9 kg/m2 105/71 mm[Hg] Results Lab Results None recorded. Allergies Code Code System Name Reaction Severity Onset NKDA ? ? ? Problems Name Status Onset Date Source ? Active 02/23/2022 ? Hypothyroidism Active ? ? Late Entry into Care Active ? ? and Type 2 Diabetes Mellitus Active ? ? Procedures Date
--- OUTSIDE RECORDS SUMMARY | 2022-06-29 06:23 | XMS_ITS | Encounter Summary ---
:1995 Author Care Team Providers Name Role Phone Josérandi Aguilar MD Primary Care Provider [phone] Reason for Visit None recorded. Assessment and Plan 1. Pre-existing type 2 diabetes mellitu s in ? non-stress test Discussion Note: None recorded.Patient educational handouts: No information available. Plan of Care Reminders Provider Appointments None recorded. ? ? Lab None recorded. ? ? Referral None recorded. ? ? Procedures None recorded. ? ? Surgeries None recorded. ? ? Imaging Non-stress Test 06/04/2022 [place] Medications Name Start Date ? ? Baqsimi [...]
--- OUTSIDE RECORDS SUMMARY | 2022-06-29 06:23 | XMS_ITS ---
:1995 Author Care Team Providers Name Role Phone RASHAADAwilda CANO MD Primary Care Provider [phone] Allergies Code Code System Name Reaction Severity Status Onset NKDA ? Medications Name Status Start Date Stop Date ? ? amoxicillin 875 mg-potassium clavulanate 125 mg tablet Completed ? 06/22/2022 TAKE 1 TABLET BY MOUTH TWICE DAILY FOR 7 DAYS Baqsimi 3 mg/actuation nasal spray Active ? Not available pumrfinjrt-isujyxripfibj-opxcapcf 50 mg-325 mg-40 mg Completed ? 07/07/2021 tablet cephalexin 500 mg capsule Completed ? 2021 erythromycin 5 mg/gram (0.5 %) eye ointment Active ? Not available fluconazole 150 mg tablet Completed ? 2021 Humalog KwikPen (U-100) Insulin 100 unit/mL subcutaneous Active ? Not available Humulin N NPH U-100 Insulin (isophane susp) 100 unit/mL Complete d ? 02/23/2022 subcutaneous insulin syringe U-100 with needle 0.5 mL 31 gauge x 5/16 Comple adonis ? 09/26/2021 USE DIRECTED Lantus Solostar U-100 Insulin 100 unit/mL (3 mL) Active ? Not available subcutaneous pen metformin 500 mg tablet Completed ? 01/21/20 nitrofurantoin monohydrate/macrocrystals 100 mg capsule Active ? Not available omeprazole 20 mg capsule,delayed release Completed ? 01/20/2022 polymyxin B sulfate 10,000 unit-trimethoprim 1 mg/mL eye Complet ed ? 01/20/2022 drops Active ? Not available Vitamins and Minerals Completed ? 07/07/2021 zinc Completed ? 07/07/2021 Problems Name Status Onset Date Source ? Unknown 04/16/2021
--- OUTSIDE RECORDS SUMMARY | 2022-06-29 06:23 | XMS_ITS | Encounter Summary ---
:1995 Author Care Team Providers Name Role Phone Josérandi Aguilar MD Primary Care Provider [phone] Reason for Visit OB visit Assessment and Plan 1. and type 2 diabetes mellit us Discussion [...] ft 1.5 in 175 lbs 32.5 kg/m2 114/72 mm[Hg] Results Lab Results None recorded. Allergies Code Code System Name Reaction Severity Onset NKDA ? ? ? Problems Name Status Onset Date Source ? Active 02/23/2022 ? Hypothyroidism Active ? ? Late Entry into Care Active ? ? and Type 2 Diabetes Mellitus Active ? ? Procedures Date Name Performed by ?
--- OUTSIDE RECORDS SUMMARY | 2022-06-29 06:23 | XMS_ITS | Encounter Summary ---
:1995 Author Care Team Providers Name Role Phone Josérandi Aguilar MD Primary Care Provider [phone] Reason for Visit None recorded. Assessment and Plan 1. Pre-existing type 2 diabetes mellitu s in ? non-stress test Discussion Note: None recorded.Patient educational handouts: No information available. Plan of Care Reminders Provider Appointments None recorded. ? ? Lab None recorded. ? ? Referral None recorded. ? ? Procedures None recorded. ? ? Surgeries None recorded. ? ? Imaging Non-stress Test 06/01/2022 [place] Medications Name Start Date ? ? Baqsimi [...]
--- OUTSIDE RECORDS SUMMARY | 2022-06-29 06:23 | XMS_ITS | Encounter Summary ---
:1995 Author Care Team Providers Name Role Phone Josérandi Aguilar MD Primary Care Provider [phone] Reason for Visit None recorded. Assessment and Plan 1. Pre-existing type 2 diabetes mellitu s in ? non-stress test Discussion Note: None recorded.Patient educational handouts: No information available. Plan of Care Reminders Provider Appointments None recorded. ? ? Lab None recorded. ? ? Referral None recorded. ? ? Procedures None recorded. ? ? Surgeries None recorded. ? ? Imaging Non-stress Test 06/18/2022 [place] Medications Name Start Date ? ? Baqsimi [...] Medications Administered None recorded. Vitals Blood Pressure 123/73 mm[Hg] Results Lab Results None recorded. Allergies Code Code System Name Reaction Severity Onset NKDA ? ? ? Problems Name Status Onset Date Source ? Active 02/23/2022 ? Hypothyroidism Active ? ? Late Entry into Care Active ? ? and Type 2 Diabetes Mellitus Active ? ? Procedures Date Name Performed by
--- OUTSIDE RECORDS SUMMARY | 2022-06-29 06:23 | XMS_ITS | Encounter Summary ---
:1995 Author Care Team Providers Name Role Phone Josérandi Aguilar MD Primary Care Provider [phone] Reason for Visit None recorded. Assessment and Plan 1. Pre-existing type 2 diabetes mellitu s in ? non-stress test Discussion Note: None recorded.Patient educational handouts: No information available. Plan of Care Reminders Provider Appointments None recorded. ? ? Lab None recorded. ? ? Referral None recorded. ? ? Procedures None recorded. ? ? Surgeries None recorded. ? ? Imaging Non-stress Test 05/25/2022 [place] Medications Name Start Date ? ? Baqsimi [...]
--- OUTSIDE RECORDS SUMMARY | 2022-06-29 06:23 | XMS_ITS | Encounter Summary ---
:1995 Author Care Team Providers Name Role Phone Josérandi Aguilar MD Primary Care Provider [phone] Reason for Visit None recorded. Assessment and Plan 1. Pre-existing type 2 diabetes mellitu s in ? non-stress test Discussion Note: None recorded.Patient educational handouts: No information available. Plan of Care Reminders Provider Appointments None recorded. ? ? Lab None recorded. ? ? Referral None recorded. ? ? Procedures None recorded. ? ? Surgeries None recorded. ? ? Imaging Non-stress Test 06/15/2022 [place] Medications Name Start Date ? ? Baqsimi [...]
--- OUTSIDE RECORDS SUMMARY | 2022-06-29 06:23 | XMS_ITS | Encounter Summary ---
:1995 Author Care Team Providers Name Role Phone Josérandi Aguilar MD Primary Care Provider [phone] Reason for Visit OB visit Assessment and [...] ft 1.5 in 176 lbs 32.7 kg/m2 112/75 mm[Hg] Results Lab Results None recorded. Allergies Code Code System Name Reaction Severity Onset NKDA ? ? ? Problems Name Status Onset Date Source ? Active 02/23/2022 ? Hypothyroidism Active ? ? Late Entry into Care Active ? ? and Type 2 Diabetes Mellitus Active ? ? Procedures Date
--- OUTSIDE RECORDS SUMMARY | 2022-06-29 06:24 | XMS_ITS | Encounter Summary ---
:1995 Author Care Team Providers Name Role Phone Josérandi Aguilar MD Primary Care Provider [phone] Reason for Visit None recorded. Assessment and Plan 1. Pre-existing type 2 diabetes mellitu s in ? non-stress test Discussion Note: None recorded.Patient educational handouts: No information available. Plan of Care Reminders Provider Appointments None recorded. ? ? Lab None recorded. ? ? Referral None recorded. ? ? Procedures None recorded. ? ? Surgeries None recorded. ? ? Imaging Non-stress Test 05/21/2022 [place] Medications Name Start Date ? ? Baqsimi [...]
--- OUTSIDE RECORDS SUMMARY | 2022-06-29 06:24 | XMS_ITS | Encounter Summary ---
:1995 Author Care Team Providers Name Role Phone Josérandi Aguilar MD Primary Care Provider [phone] Reason for Visit OB visit Assessment and Plan 1. Dysuria 2. Increased frequency of urination 3. and type 2 diabetes mellit us 4. Urinary symptoms ? urinalysis, dipstick Discussion Note: None recorded.Patient educational handouts: No information available. Plan of Care Reminders Provider Appointments None recorded. ? ? Lab Urinalysis, Dipstick 05/13/2022 [place] Referral None recorded. ? ? Procedures None [...] ft 1.5 in 175 lbs 32.5 kg/m2 102/71 mm[Hg] Results Lab Results Date Name Specimen Result Interpretation Description Value Range Status Address ? 05/13/2022 Urinalysis, Urine ? Leukocytes neg ? ? [place]: 2015 Dipstick Daily [place], [place]
--- OUTSIDE RECORDS SUMMARY | 2022-06-29 06:24 | XMS_ITS | Encounter Summary ---
:1995 Author Care Team Providers Name Role Phone Josérandi Aguilar MD Primary Care Provider [phone] Reason for Visit OB visit Assessment and [...] BMI Blood Pressure 5 ft 1.5 in 173 lbs 32.2 kg/m2 115/77 mm[Hg] Results Lab Results None recorded. Allergies Code Code System Name Reaction Severity Onset NKDA ? ? ? Problems Name Status Onset Date Source ? Active 02/23/2022 ? Hypothyroidism Active ? ? Late Entry into Care Active ? ? and Type 2 Diabetes Mellitus Active ? ? Procedures Date
--- OUTSIDE RECORDS SUMMARY | 2022-06-29 06:24 | XMS_ITS | Encounter Summary ---
:1995 Author Care Team Providers Name Role Phone José Aguilar MD Primary Care Provider [phone] Reason for Visit OB visit Assessment and Plan Assessment Note Patient is ___weeks . Discussed plan. 1. Dysuria ? Macrobid 100 mg capsule Discussion Note: None recorded.Patient educational handouts: No [...] ft 1.5 in 174 lbs 32.3 kg/m2 103/71 mm[Hg] Results Lab Results None recorded. Allergies Code Code System Name Reaction Severity Onset NKDA ? ? ? Problems Name Status Onset Date Source ? Active 02/23/2022 ? Hypothyroidism Active ? ? Late Entry into Care Active ? ? [place]
--- OUTSIDE RECORDS SUMMARY | 2022-06-29 06:24 | XMS_ITS | Encounter Summary ---
:1995 Author Care Team Providers Name Role Phone Josérandi Aguilar MD Primary Care Provider [phone] Reason for Visit OB visit Assessment and Plan 1. and type 2 diabetes mellit us 2. Candidiasis of vagina ? Diflucan 150 mg tablet Discussion Note: [...] ft 1.5 in 171 lbs 31.8 kg/m2 110/73 mm[Hg] Results Lab Results None recorded. Allergies Code Code System Name Reaction Severity Onset NKDA ? ? ? Problems Name Status Onset Date Source ? Active 02/23/2022 ? Hypothyroidism Active ? ? Late Entry into Care Active ? ? and Type 2 Diabetes Mellitus Active ? ?
--- OUTSIDE RECORDS SUMMARY | 2022-06-29 06:24 | XMS_ITS | Encounter Summary ---
:1995 Author Care Team Providers Name Role Phone Josérandi Aguilar MD Primary Care Provider [phone] Reason for Visit None recorded. Assessment and Plan 1. Pre-existing type 2 diabetes mellitu s in ? non-stress test Discussion Note: None recorded.Patient educational handouts: No information available. Plan of Care Reminders Provider Appointments None recorded. ? ? Lab None recorded. ? ? Referral None recorded. ? ? Procedures None recorded. ? ? Surgeries None recorded. ? ? Imaging Non-stress Test 05/14/2022 [place] Medications Name Start Date ? ? Baqsimi [...]
[2022-06-29 07:22] LABS: Basophils Percent Auto 0.1 % (0.2-1.2); Eosinophils Absolute Auto 0.1 K/mm3 (0-0.3); Eosinophils Percent Auto 0.7 % (0-4.4); Hematocrit 37.9 % (37.0-47.0); Hemoglobin 12.9 g/dL (12.0-15.0); Immature Granulocyte Percent A 0.7 % (0-0.5); Lymphocytes Absolute Auto 3.02 K/mm3 (0.9-3.2); Lymphocytes Percent Auto 22.1 % (18.3-44.2); Mean Corpuscular Hemoglobin 27.4 pg (26-34); Mean Corpuscular Volume 80.6 fl (80-100); Mean Platelet Volume 10.9 fl (7.4-10.4); Monocytes Absolute Auto 0.6 K/mm3 (0.1-0.6); Monocytes Percent Auto 4.2 % (2.6-8.5); Neutrophils Absolute Auto 9.9 K/mm3 (1.3-6.7); Neutrophils Percent Auto 72.2 % (45.5-73.1); Platelet Count Result 299 k/mm3 (150-375); Red Cell Distribution Width 14.9 % (11.5-14.5); White Blood Count 13.7 K/mm3 (4.5-10.0)
[2022-06-29 07:32] LABS: Glucose Point of Care 147 mg/dl (65-105)
[2022-06-29] MEDS: LACTATED RINGERS 1,000 ML 125 ML IV CONT ×3 (07:47→11:37)
[2022-06-29] MEDS: OXYTOCIN 30 UNITS/NS 500 ML 30 UNITS/500 ML BAG IV CONT (07:48)
--- NOTE | 2022-06-29 08:15 | PM.IMHP ---
H&P: HPI History of Present Illness Date/Time: 06/29/22 08:15 Chief Complaint: induction of labor Narrative: Anabel is a at 39.0 here for IOL for DM2. Sugars managed by MFM until last 3 weeks because she couldn't get there for visits anymore so I have managed last 2 weeks. Overall very good control. also complicated by hypothyroidism, short interval (has 11mo), and late care due to unaware she was first 3-4 mos. Review of Systems Review of Systems: All systems reviewed & are unremarkable except as noted in HPI and below PMFSH Past Medical History Medical History (Updated 06/29/22 @ 08:18 by Diamond Sage MD) Adult BMI 31.0-31.9 kg/sq m BMI 30.0-30.9,adult Family History Family History Father Diabetes mellitus Social History Social History Smoking status: Never smoker Second hand tobacco smoke exposure: No Substance use: never Lack of Transportation: No Lack of Food: Never True Current Housing: I Have Housing Concerned About Future Housing: No Difficulty Paying Gas/Electric Bills: No Difficulty Paying for Meds: No Currently Unemployed: No Education: Bachelor's Degree Difficulty w/ Childcare or Family Care: No Spiritual care concerns: No Meds Home Medications and Allergies Home Medications Medication Instructions Recorded Confirmed Type aspirin 81 mg chewable tablet 81 mg PO DAILY 05/28/22 06/01/22 History insulin aspart U-100 100 unit/mL 4 unit subcut QACBREAK 05/28/22 06/01/22 History (3 mL) subcutaneous pen (Novolog Flexpen U-100 Insulin aspart) insulin aspart U-100 100 unit/mL 5 unit subcut QACLUNCH 05/28/22 06/01/22 History (3 mL) subcutaneous pen (Novolog Flexpen U-100 Insulin aspart) insulin aspart U-100 100 unit/mL 8 unit subcut QACDINNER 05/28/22 06/01/22 History (3 mL) subcutaneous pen (Novolog Flexpen U-100 Insulin aspart) vit no.95-ferrous 1 tablet PO HS 05/28/22 06/01/22 History fumarate 28 mg-folic acid 800 mcg tablet () insulin glargine 100 unit/mL 30 unit subcut DAILY 06/12/22 06/12/22 History subcutaneous solution (Lantus U-100 Insulin) insulin glargine 100 unit/mL 40 unit subcut DAILY 06/12/22 06/12/22 History subcutaneous solution (Lantus U-100 Insulin) Allergies Allergy/AdvReac Type Severity Reaction Status Date / Time No Known Allergies Allergy Verified 06/01/22 13:31 Vital Signs Vital Signs - 24 hr 06/29/22 07:47 06/29/22 08:00 Pulse Rate 96 93 Blood Pressure 110/70 114/79 Exam Const: General: no acute distress Resp: Effort & Inspection: normal respiratory effort Auscultation: clear to auscultation bilaterally Cardio: Rate: regular rate Rhythm: regular rhythm GI: GI Palp: Yes Soft to palpation Extrem: General: normal to inspection H&P: Results Labs Labs: Short CBC 06/29/22 Range/Units 07:05 WBC 13.7 H (4.5-10.0) K/mm3 Hgb 12.9 (12.0-15.0) g/dL Hct 37.9 (37.0-47.0) % Plt Count 299 (150-375) k/mm3 Assessment and Plan Assessment and plan (1) DM2 (diabetes mellitus, type 2): Code(s): E11.9 - Type 2 diabetes mellitus without complications Status: Acute (2) Hypothyroid: Code(s): E03.9 - Hypothyroidism, unspecified Status: Acute Plan AROM clear 60/-3 pitocin per protocol BS 146 this am. insulin drip if another sugar over 140. FHT category 1
--- NOTE | 2022-06-29 08:33 | WPDANESEPP ---
Anes - Eval Pre Procedure Procedure: labor epidural Date/Time: 06/29/22 08:34 Preop Diagnosis: labor pain Pre Op Diagnosis: Induction of Labor Patient Data Age: 26 Gender: F Height: Weight: Last Vital Signs Pulse 88 06/29/22 08:30 BP 111/76 06/29/22 08:30 Allergies Allergy/AdvReac Type Severity Reaction Status Date / Time No Known Allergies Allergy Verified 06/01/22 13:31 Home Medications Medication Instructions Recorded Confirmed Type aspirin 81 mg chewable tablet 81 mg PO DAILY 05/28/22 06/01/22 History insulin aspart U-100 100 unit/mL 4 unit subcut QACBREAK 05/28/22 06/01/22 History (3 mL) subcutaneous pen (Novolog Flexpen U-100 Insulin aspart) insulin aspart U-100 100 unit/mL 5 unit subcut QACLUNCH 05/28/22 06/01/22 History (3 mL) subcutaneous pen (Novolog Flexpen U-100 Insulin aspart) insulin aspart U-100 100 unit/mL 8 unit subcut QACDINNER 05/28/22 06/01/22 History (3 mL) subcutaneous pen (Novolog Flexpen U-100 Insulin aspart) vit no.95-ferrous 1 tablet PO HS 05/28/22 06/01/22 History fumarate 28 mg-folic acid 800 mcg tablet () insulin glargine 100 unit/mL 30 unit subcut DAILY 06/12/22 06/12/22 History subcutaneous solution (Lantus U-100 Insulin) insulin glargine 100 unit/mL 40 unit subcut DAILY 06/12/22 06/12/22 History subcutaneous solution (Lantus U-100 Insulin) Laboratory Tests 06/29/22 06/29/22 06/29/22 07:05 07:05 07:05 WBC 13.7 K/mm3 H K/mm3 (4.5-10.0) RBC 4.70 M/mm3 M/mm3 (4.2-5.4) Hgb 12.9 g/dL g/dL (12.0-15.0) Hct 37.9 % % (37.0-47.0) MCV 80.6 fl fl (80-100) MCH 27.4 pg pg (26-34) MCHC 34.0 g/dl g/dl (32-36) RDW 14.9 % H % (11.5-14.5) Plt Count 299 k/mm3 k/mm3 (150-375) MPV 10.9 fl H fl (7.4-10.4) Immature Gran % (Auto) 0.7 % H % (0-0.5) Neut % (Auto) 72.2 % % (45.5-73.1) Lymph % (Auto) 22.1 % % (18.3-44.2) [place] % (Auto) 4.2 % % (2.6-8.5) Eos % (Auto) 0.7 % % (0-4.4) Baso % (Auto) 0.1 % L % (0.2-1.2) Lymph # (Auto) 3.02 K/mm3 K/mm3 (0.9-3.2) [place] # (Auto) 0.6 K/mm3 K/mm3 (0.1-0.6) Eos # (Auto) 0.1 K/mm3 K/mm3 (0-0.3) Baso # (Auto) 0.0 K/mm3 K/mm3 (0.0-0.1) Abs Immat Gran (auto) 0.10 K/mm3 H K/mm3 (0.00-0.031) Absolute Neuts (auto) 9.9 K/mm3 H K/mm3 (1.3-6.7) Absolute Nucleated RBC 0.0 K/mm3 K/mm3 (0.0-0.012) Nucleated RBC % 0.0 % % (0.0-0.2) POC Capillary Glucose RPR Pending HIV 1&2 Ab/P24 Ag 4thGn Pending Blood Type Antibody Screen 06/29/22 06/29/22 07:05 07:25 WBC RBC Hgb Hct MCV MCH MCHC RDW Plt Count MPV Immature Gran % (Auto) Neut % (Auto) Lymph % (Auto) [place] % (Auto) Eos % (Auto) Baso % (Auto) Lymph # (Auto) [place] # (Auto) Eos # (Auto) Baso # (Auto) Abs Immat Gran (auto) Absolute Neuts (auto) Absolute Nucleated RBC Nucleated RBC % POC Capillary Glucose 147 mg/dl H mg/dl (65-105) RPR HIV 1&2 Ab/P24 Ag 4thGn Blood Type B Positive Antibody Screen Pending Patient hx anesthesia problems: none Family hx anesthesia problems: none Results Review: All pre-operative results and documents have been reviewed as part of the pre-operative evaluation. COUNT INCLUDES [facility] Past Medical History Medical History Adult BMI 31.0-31.9 kg/sq m BMI 30.0-30.9,adult Family History Family History Fa
[2022-06-29 08:38] LABS: Glucose Point of Care 107 mg/dl (65-105)
[2022-06-29] MEDS: SALINE 0.65% NAS SOLN 44 ML BTL 1 SPRAY NASAL (08:42)
[2022-06-29] MEDS: PSEUDOEPHEDRINE HCL 30 MG TABLET PO ×2 (09:16→17:25)
[2022-06-29 09:26] LABS: HIV 1/2 Ab P24 Ag Result Negative (Negative)
[2022-06-29 12:06] LABS: Glucose Point of Care 61 mg/dl (65-105)
[2022-06-29 12:38] LABS: Glucose Point of Care 85 mg/dl (65-105)
--- NOTE | 2022-06-29 13:48 | PM.OBPRVD ---
OB - Delivery Note Procedure Delivery date: 06/29/22 Procedure: Events: Diabetes Mellitus Induction method: AROM and Per Pitocin Protocol Delivery monitor: External FHT and External Uterine Route of delivery: Laceration Description: Perineal - 2nd Degree Delivery repair: vicryl Quantitative Blood Loss (ml): 290 Anesthesia type: Epidural Disposition: Floor Narrative: With adequate expulsive efforts by the mother, the baby's head was delivered OA. The baby's anterior shoulder was delivered under the pubic symphysis without difficulty. The posterior shoulder and the rest of the baby delivered without difficulty. The infant was placed on the mothers chest and suctioned and stimulated. The cord was clamped and cut after 30 seconds. Mother and baby both stable. [place] Baby Date of : 06/29/22 Time of : 13:27 Weeks of gestation at delivery: 39 Infant gender: Male Weight (pounds): 5 Weight (ounces): 15 presentation: vertex Placenta delivery description: Spontaneous Cord Vessel Description: 3 Vessels, Nuchal Cord and Delayed Cord Clamping score one minute: 8 score five minutes: 9
[2022-06-29 13:54] LABS: Glucose Point of Care 70 mg/dl (65-105)
[2022-06-29 17:11] LABS: Glucose Point of Care 145 mg/dl (65-105)
--- NOTE | 2022-06-29 17:12 | PC.NURSE ---
Patient transferred to post room #285 via (W/C ). Support person present. Oriented to unit, room, information board, rooming in, admission packet and security measures. Patient verbalizes understanding.
[2022-06-29] MEDS: DOCUSATE SODIUM 100 MG CAPSULE PO (17:27)
[2022-06-29] MEDS: IBUPROFEN 600 MG TABLET PO (19:21)
[2022-06-29] MEDS: INSULIN GLARGINE (*BKC) 100 UNITS/ML 18 UNITS SUB-Q (20:54)
[2022-06-29 21:00] LABS: Glucose Point of Care 148 mg/dl (65-105)
[2022-06-30 01:05] VITALS: BP 107/64; PULSE 61; RESP 20; TEMP 36.9; O2SAT 100
[2022-06-30] MEDS: PSEUDOEPHEDRINE HCL 30 MG TABLET PO ×4 (04:45→22:16)
[2022-06-30 04:48] LABS: Glucose Point of Care 77 mg/dl (65-105)
[2022-06-30] MEDS: IBUPROFEN 600 MG TABLET PO ×2 (04:48→12:07)
[2022-06-30 05:28] VITALS: BP 91/58; PULSE 70; RESP 22; TEMP 37.2; O2SAT 100
[2022-06-30 05:42] LABS: Hematocrit 34.8 % (37.0-47.0); Hemoglobin 11.7 g/dL (12.0-15.0)
--- NOTE | 2022-06-30 07:51 | PM.OBPNVD ---
OB - PN: Subj Subjective Date/time seen: 06/30/22 07:51 Patient comments: pain well controlled and tolerating diet [place] baby status: nursing well [place] feeding status: exclusively breast feeding Narrative: still congested. afebrile. fasting BS 77. OB - PN: Obj Data Labs CBC & Chem 7: 06/30/22 04:42 Labs: Laboratory Results - last 24 hr 06/29/22 06/29/22 06/29/22 07:05 07:05 08:32 Hgb Hct POC Capillary Glucose 107 H HIV 1&2 Ab/P24 Ag 4thGn Negative Blood Type B Positive Antibody Screen Negative 06/29/22 06/29/22 06/29/22 12:03 12:36 13:51 Hgb Hct POC Capillary Glucose 61 L 85 70 HIV 1&2 Ab/P24 Ag 4thGn Blood Type Antibody Screen 06/29/22 06/29/22 06/30/22 17:08 20:54 04:11 Hgb Hct POC Capillary Glucose 145 H 148 H 77 HIV 1&2 Ab/P24 Ag 4thGn Blood Type Antibody Screen 06/30/22 04:42 Hgb 11.7 L Hct 34.8 L POC Capillary Glucose HIV 1&2 Ab/P24 Ag 4thGn Blood Type Antibody Screen OB - PN A/P Plan day: 1 Plan: routine care Comments: BS fine so far. circ done after consented. Time Spent With Patient Time: Total time spent is greater than 50% in coordination of care (as documented) at patient's floor/unit and/or counseling patient: Time with patient: less than 15 minutes Exam Narrative: NAD abdomen soft, nontender, fundus firm below the umbilicus Extremities nontender, 1+ edema
[2022-06-30 07:55] VITALS: BP 116/64; PULSE 75; RESP 20; TEMP 36.4; O2SAT 99
[2022-06-30] MEDS: MULTIVIT/MIN/PREN/FOL AC/IRON TABLET 1 TAB PO (08:53)
[2022-06-30] MEDS: ACETAMINOPHEN 325 MG TABLET 650 MG PO ×2 (08:58→15:21)
[2022-06-30] MEDS: DOCUSATE SODIUM 100 MG CAPSULE PO (08:59)
[2022-06-30 11:11] LABS: Glucose Point of Care 132 mg/dl (65-105)
--- NOTE | 2022-06-30 11:13 | PC.NURSE ---
[id number] Introductions were made, then consulted with patient to assess needs related to due to request from Primary RN. Mother led the conversation with her?plans to feed?her and the?experience so far. Mother is holding her skin to skin cuddled and sleeping. Mother states her has a poopy diaper. RN demonstrates unwrapping , stimulating with touch, changing position, diaper change with circumcision care to wake for . Infant latched optimally to the left breast using cross cradle positioning. Mother denies pain or discomfort. Resources provided for inpatient and outpatient services using mom/baby guide.
--- NOTE | 2022-06-30 11:31 | WPDANLDPN2 ---
Anes-Prog Note L&D Date/Time: 06/30/22 11:31 Neuro status: Neuro function grossly intact. Vital Signs: Last Vital Signs Temp 36.4 C L 06/30/22 07:55 Pulse 75 06/30/22 07:55 Resp 20 06/30/22 07:55 BP 116/64 06/30/22 07:55 Pulse Ox 99 06/30/22 07:55 O2 Del Method Room Air 06/29/22 19:20 Pain score (VAS): 0 I/O: Intake & Output 06/29/22 06/30/22 06/30/22 23:59 07:59 15:59 Output Total 770 Balance -770 Patient feedback: Patient satisfied with anesthetic care.
[2022-06-30 12:09] VITALS: BP 107/65; PULSE 62; RESP 18; TEMP 36.5; O2SAT 100
[2022-06-30 14:46] LABS: Rapid Plasma Reagin Non-Reactive (NonReactive)
[2022-06-30 16:14] LABS: Glucose Point of Care 142 mg/dl (65-105)
[2022-06-30 19:10] VITALS: BP 108/68; PULSE 65; RESP 18; TEMP 36.6
[2022-06-30 21:47] LABS: Glucose Point of Care 134 mg/dl (65-105)
[2022-06-30] MEDS: INSULIN GLARGINE (*BKC) 100 UNITS/ML 18 UNITS SUB-Q (21:49)
[2022-07-01 05:56] LABS: Glucose Point of Care 77 mg/dl (65-105)
--- NOTE | 2022-07-01 07:16 | P.PNOB_ITS ---
OB - PN: Subj Subjective Date/time seen: 07/01/22 07:16 Patient comments: no complaints baby status: doing well and nursing well [place] feeding status: exclusively breast feeding OB - PN: Obj Data Labs CBC & Chem 7: 06/30/22 04:42 Labs: Laboratory Results - last 24 hr 06/29/22 06/30/22 06/30/22 07:05 11:09 16:11 POC Capillary Glucose 132 H 142 H RPR Non-reactive 06/30/22 07/01/22 21:46 05:51 POC Capillary Glucose 134 H 77 RPR OB - PN A/P Plan day: 2 Plan: routine care and discharge home Time Spent With Patient Time: Total time spent is greater than 50% in coordination of care (as documented) at patient's floor/unit and/or counseling patient: Time with patient: less than 15 minutes Exam Narrative: NAD abdomen soft, nontender, fundus firm below the umbilicus Extremities nontender, 1+ edema
[2022-07-01] MEDS: ACETAMINOPHEN 325 MG TABLET 650 MG PO (07:46)
[2022-07-01] MEDS: MULTIVIT/MIN/PREN/FOL AC/IRON TABLET 1 TAB PO (07:47)
[2022-07-01] MEDS: DOCUSATE SODIUM 100 MG CAPSULE PO (07:47)
[2022-07-01] MEDS: PSEUDOEPHEDRINE HCL 30 MG TABLET PO (07:47)
[2022-07-01 07:50] VITALS: BP 104/59; PULSE 68; RESP 16; TEMP 37.3; O2SAT 100
--- NOTE | 2022-07-01 08:14 | PM.OBDSVD ---
DS: Admitting Diagnosis Discharge Date 07/01/22 Admitting Diagnosis term , DM2 DS: Discharge Diagnosis Discharge Diagnosis (1) , delivered: Code(s): O80 - Encounter for full-term uncomplicated delivery Status: Acute OB - DS: Summary Hospital Course Hospital Course: Anabel was admitted for induction of labor at 39w for well controlled type 2 DM. She proceeded to have an uncomplicated vaginal delivery and course and was discharged home on day 2 in stable condition. OB Procedures : NST and Ultrasound OB Procedures Intrapartum: Spontaneous Vag Delivery OB Procedures: : None Peripartum Data Infant Delivery Method: Natural Vaginal Laceration Description: Perineal - 2nd Degree complications: none Status at Discharge Functional status at discharge: independent ambulation Time Spent with Patient Time attestation: Total time spent providing and/or coordinating discharge services: Exam Narrative: NAD abdomen soft, appropriately tender Ext non tender, 1+ edema DS: Data Data Completed and Pending Labs on day of discharge: Labs from last 24 hours 07/01/22 06/30/22 06/30/22 05:51 21:46 16:11 POC Capillary Glucose 77 134 H 142 H RPR 06/30/22 06/29/22 11:09 07:05 POC Capillary Glucose 132 H RPR Non-reactive Discharge Plan Discharge Attending physician on discharge: Diamond Sage Discharging Clinician: Diamond aSge Anticipated Discharge Date/Time: 07/01/22 07:19 Patient Disposition: Home, Self-Care Activity: pelvic rest Diet: regular Discharge Instructions: Education: Mom and Baby Guide Given to: Mother Follow-Up: Call your delivering provider's office for an appointment to be seen in: 4 Weeks Mom and baby should come to the [facility] for the follow-up appointment. Appointment Date/Time: July 03, 2022 at 1:30 pm What to expect at your follow-up visit: Blood Pressure Check Physical Assessment Call [phone] if you are unable to keep your appointment time. BREAST CARE: * Wear a snug supportive bra. * For engorgement discomfort: Breast Feeding: * Apply warm moist washcloths * Express milk as needed to relieve engorgement * Wear loose clothing Bottle Feeding: * May apply ice packs * For sore nipples: * Identify correct latch-on * Apply warm moist washcloths before and after nursing * Air dry nipples after nursing * May apply Lansinoh cream to nipples EPISIOTOMY/PERINEAL CARE: * Until bleeding stops, use your amrit bottle after urinating * Change your pad frequently throughout the day * You may take sitz baths several times a day (fill your bathtub with warm water and soak for 20 minutes.) Do NOT bathe in the water * No tub baths until seen by your physician - You may shower ACTIVITY: * Rest as much as possible. * Do not exercise or lift anything heavier than your baby (such as laundry or other children.) * Avoid stairs or driving as much as possible. * Do not put anything into the vagina. No douching, tampons, or sexual activity until seen by physician. NOTIFY PHYSICIAN IF YOU HAVE ANY QUESTIONS OR IF ANY OF THE FOLLOWING SYMPTOMS OCCUR: * If your episiotomy or incision becomes red, swollen, or more painful than what you have experienced in the hospital. * If your vaginal bleeding becomes foul smelling. * If your vaginal bleeding becomes more heavy than a period or if your bleeding changes from pink to bright red. However, you may pass an occasional walnut-sized clot once or twice for the first week . * If you experience a sharp, shooting pain in you calves. * If you discover a hard, reddened area on your breast or if you experience flu-like symptoms. DIET: * Eat regular, well-balanced meals. * Drink plenty of fluids daily. If , drink to thirst. Patient Instructions: Elen roche
[2022-07-03 14:35] VITALS: BP 119/67; PULSE 86; RESP 20; O2SAT 100
== END 2022-07-01 10:20 | disposition home or self-care (01) | DRG 805 ==
LOC: ANHLDR 06:21 → ANHOB2 17:17
PROVIDERS: Admitting Provider Obstetrics & Gynecology; PCP Family Medicine; Visit Provider Obstetrics & Gynecology
DX: O76 Abnormality in fetal heart rate and rhythm complicating labor and delivery (principal); O24.12 Pre-existing type 2 diabetes mellitus, in childbirth; Z37.0 Single live birth; O99.284 Endocrine, nutritional and metabolic diseases complicating childbirth; O70.1 Second degree perineal laceration during delivery; O69.2XX0 Labor and delivery complicated by other cord entanglement, with compression, not applicable or unspecified; Z3A.39 39 weeks gestation of pregnancy; Z79.4 Long term (current) use of insulin
CPT/HCPCS: 36415; 82948; 85014; 85018; 85025; 86592; 86703; 86850; 86900; 86901; A9270; G0432; J1815; J2590; J2795; J7120

== ENCOUNTER 2022-08-24 19:50 | Emergency (ER) | payer OTHER, SELFPAY ==
--- NOTE | ~2022-08-24 | CT_ITS ---
CT Abdomen and Pelvis with contrast. History: Flank pain, fever, leukocytosis. Spiral CT of the abdomen and pelvis was performed after the administration of intravenous contrast. 1 00 cc of Omnipaque 350 was administered intravenously without complication. Dose reduction technique was used on this scan by utilizing automated exposure control and iterative reconstruction technique. The dose-length product (DLP) was 391.40 mGy-cm. Findings: Scans through the lung bases demonstrate mild atelectatic change. The liver, spleen, pancreas, gallbladder, and adrenal glands are within normal limits. Probable nonob structing bilateral renal stones noted. No evidence of aortic aneurysm. No lymphadenopathy is seen. There is no evidence of bowel obstruction. There is no evidence to suggest acute appendicitis or dive rticulitis. Images through the pelvis were performed. Urinary bladder unremarkable. No adnexal mass seen. IUD in place. No ascites is seen. Impression: Bilateral nonobstructing renal stones. IUD in place. Reviewed, dictated and finalized at location . [employer] Impression: Bilateral nonobstructing renal stones. IUD in place.
[2022-08-24 19:55] VITALS: BP 111/71; PULSE 91; RESP 18; TEMP 36.9; O2SAT 100
--- NOTE | 2022-08-24 21:08 | ED.URI ---
HPI - URI/Sore Throat General Chief Complaint: Upper Respiratory Infection <GATITO Garcia Last Filed: 08/25/22 04:30> Stated Complaint: fever with left eye conjunctivitis <GATITO Garcia Last Filed: 08/25/22 04:30> Time Seen by Provider: 08/24/22 20:44 <GATITO Garcia Last Filed: 08/25/22 04:30> Source: patient <GATITO Garcia Last Filed: 08/25/22 04:30> Mode of arrival: ambulatory <GATITO Garcia Last Filed: 08/25/22 04:30> Limitations: no limitations <GATITO Garcia Last Filed: 08/25/22 04:30> History of Present Illness HPI Narrative: Patient is a 26 y/o female who presents to the ED with c/o fever. Patient reports she developed redness and drainage of her L eye last . She used some leftover abx eye drops and has had some improvement. She denies any vision changes. She does not wear contacts. Patient then developed fevers, chills, diaphoresis, body aches, and HANNAH yesterday. She states the sx's came on suddenly. She also reports having a mild cough, sore throat, but denies significant congestion, rhinorrhea. Denies CP, SOB, dysphagia, N/V, abdominal pain. Patient has been taking Tylenol with relief of fevers. She is vaccinated for covid and flu. <GATITO Garcia Last Filed: 08/25/22 04:30> Related Data Home Medications: Home Medications Medication Instructions Recorded Confirmed aspirin 81 mg chewable tablet 81 mg PO DAILY 05/28/22 07/17/22 vit no.95-ferrous 1 tablet PO HS 05/28/22 07/17/22 fumarate 28 mg-folic acid 800 mcg tablet () <GATITO Garcia Last Filed: 08/25/22 04:30> Allergies/Adverse Reactions: Allergies Allergy/AdvReac Type Severity Reaction Status Date / Time No Known Allergies Allergy Verified 08/24/22 19:51 <Beverly Mattson PA-C - Last Filed: 08/25/22 04:30> Review of Systems Review of Systems: CONSTITUTIONAL: See HPI. EYES: See HPI. ENT: See HPI. CARDIOVASCULAR: Denies chest pain, palpitations, or edema. RESPIRATORY: Denies cough or dyspnea. GASTROINTESTINAL: Denies abdominal pain, nausea, vomiting, or diarrhea. MUSCULOSKELETAL: See HPI. NEUROLOGIC: See HPI. <Beverly Mattson PA-C - Last Filed: 08/25/22 04:30> All systems reviewed & are unremarkable except as noted in HPI and below <Beverly Mattsno PA-C - Last Filed: 08/25/22 04:30> PMFSH Past Medical History Medical History: Medical History (Updated 08/25/22 @ 04:22 by Beverly Mattson PA-C) Adult BMI 31.0-31.9 kg/sq m BMI 30.0-30.9,adult Hypothyroid <Beverly Mattson PA-C - Last Filed: 08/25/22 04:30> Surgical History Surgical History: Surgical History (Updated 08/24/22 @ 21:09 by Beverly Mattson PA-C) No pertinent past surgical history <Beverly Mattson PA-C - Last Filed: 08/25/22 04:30> Family History Family History: Family History Father Diabetes mellitus <Beverly Mattson PA-C - Last Filed: 08/25/22 04:30> Social History Social History: Social History Smoking status: Never smoker Second hand tobacco smoke exposure: No Substance use: never Lack of Transportation: No Lack of Food: Never True Current Housing: I Have Housing Concerned About Future Housing: No Difficulty Paying Gas/Electric Bills: No Difficulty Paying for Meds: No Currently Unemployed: No Education: Bachelor's Degree Difficulty w/ Childcare or Family Care: No Spiritual care concerns: No <Beverly Mattson PA-C - Last Filed: 08/25/22 04:30> Exam Narrative: GENERAL: Flushed appearing, obese, non-toxic, in no acute distress. HEAD: Normocephalic, atraumatic. EYES: PERRLA/EOMI. Conjunctival injection bilaterally, L > R. Mild watery drainage from bilatera
[2022-08-24 22:00] VITALS: TEMP 39.1
[2022-08-24] MEDS: SODIUM CHLORIDE 0.9% IV 1,000 ML 999 ML IV CONT (22:12)
[2022-08-24 22:56] LABS: Influenza A QL RT-PCR Negative (Negative); Influenza B QL RT-PCR Negative (Negative); RSV RNA, RT-PCR Negative (Negative); SARS-CoV-2 RNA PCR Negative
[2022-08-24 23:18] VITALS: BP 102/60; PULSE 105; RESP 20; TEMP 37.4; O2SAT 98
[2022-08-24 23:24] LABS: Basophils Percent Auto 0.3 % (0.2-1.2); Eosinophils Percent Auto 0.2 % (0-4.4); Hematocrit 40.4 % (37.0-47.0); Hemoglobin 13.2 g/dL (12.0-15.0); Immature Granulocyte Absolute 0.04 K/mm3 (0.00-0.031); Immature Granulocyte Percent A 0.3 % (0-0.5); Lymphocytes Absolute Auto 3.41 K/mm3 (0.9-3.2); Lymphocytes Percent Auto 27.2 % (18.3-44.2); Mean Corpuscular HGB Conc 32.7 g/dl (32-36); Mean Corpuscular Hemoglobin 27.5 pg (26-34); Mean Corpuscular Volume 84.2 fl (80-100); Mean Platelet Volume 11.4 fl (7.4-10.4); Monocytes Absolute Auto 1.2 K/mm3 (0.1-0.6); Monocytes Percent Auto 9.6 % (2.6-8.5); Neutrophils Absolute Auto 7.8 K/mm3 (1.3-6.7); Neutrophils Percent Auto 62.4 % (45.5-73.1); Platelet Count Result 298 k/mm3 (150-375); Red Cell Distribution Width 14.3 % (11.5-14.5); White Blood Count 12.5 K/mm3 (4.5-10.0)
[2022-08-24 23:46] LABS: Alanine Aminotransferase 45 U/L (6-35); Albumin Level 4.8 g/dL (3.5-5.1); Alkaline Phosphatase 92 U/L (38-126); Anion Gap 12 mmol/L (8-16); Aspartate Amino Transferase 39 U/L (14-36); Bilirubin,Total 0.6 mg/dL (0.2-1.3); Blood Urea Nitrogen 12 mg/dL (7-17); Calcium 8.8 mg/dL (8.4-10.2); Carbon Dioxide 24 mmol/L (22-30); Chloride 100 mmol/L (98-107); Estimated CRCL calculation 99 ml/min; Estimated Glomerular Filt Rate > 60; Glucose 75 mg/dL (65-110); Potassium 4.3 mmol/L (3.4-5.0); Sodium 136 mmol/L (137-145)
[2022-08-25] VITALS (48 sets, daily range): BP systolic 89–127; BP diastolic 54–83; PULSE 75–110; RESP 14–18; TEMP 37.2–38.3; O2SAT 94–100
[2022-08-25] MEDS: SODIUM CHLORIDE 0.9% IV 1,000 ML 999 ML IV CONT (00:18)
[2022-08-25 00:36] LABS: Strep Group A RT-PCR NOT DETECTED (Negative)
[2022-08-25 02:36] LABS: Appearance Urine Clear (Clear); Bilirubin Urine Negative (Negative); Blood Urine 2+ (Negative); Color Urine Yellow (Yellow); Glucose Urine UA Negative (Negative); Ketones Urine Negative (Negative); Leukocyte Esterase Ur 2+ LEU/UL (Negative); Nitrate Urine Negative (Negative); Protein Urine Negative (Negative); Specific Grav Ur 1.015 (1.001-1.035); Urobilinogen Urine 0.2 mg/dL (<2.0); pH Urine 6.5 (5.0-9.0)
[2022-08-25 02:44] LABS: Bacteria Urine Trace /hpf; Mucus Urine Rare /lpf; Squamous Epithelial Cell Urine Many /hpf (Few); WBC Urine 21-30 /hpf
[2022-08-25 02:47] LABS: Add Urine Microscopic? YES
[2022-08-25] MEDS: ERYTHROMYCIN OPHTH OINTMENT 1 GM TUBE 1 APPLIC EACH EYE (06:00)
--- NOTE | 2022-08-25 07:10 | PC.NURSE ---
Report given to NURIA Pastor.
== END 2022-08-25 07:27 | disposition home or self-care (01) ==
PROVIDERS: Emergency Provider Physician Assistant; PCP Family Medicine
DX: N30.01 Acute cystitis with hematuria (principal); H10.33 Unspecified acute conjunctivitis, bilateral; Z20.822 Contact with and (suspected) exposure to COVID-19; E03.9 Hypothyroidism, unspecified; Z97.5 Presence of (intrauterine) contraceptive device; N20.0 Calculus of kidney
CPT/HCPCS: 36415; 74177; 80053; 81001; 81025; 85025; 87086; 87088; 87637; 87651; 96365; 96375; 99284; A9270; J0131; J0696; J7030; Q9967

== ENCOUNTER 2023-02-23 13:32 | Emergency (ER) | payer OTHER, SELFPAY ==
[2023-02-23 13:35] VITALS: BP 122/82; PULSE 96; RESP 16; TEMP 36.5; O2SAT 100
[2023-02-23 14:17] LABS: Appearance Urine Clear (Clear); Bacteria Urine None Seen /hpf; Bilirubin Urine Negative (Negative); Color Urine Yellow (Yellow); Glucose Urine UA Negative (Negative); Ketones Urine Negative (Negative); Leukocyte Esterase Ur 1+ LEU/UL (Negative); Nitrate Urine Negative (Negative); Non Pathogenic Casts 0-2; Protein Urine Negative (Negative); RBC Urine 0-2 /hpf (0-2); Specific Grav Ur 1.023 (1.001-1.035); Squamous Epithelial Cell Urine Few /hpf (Few); Urobilinogen Urine 0.2 mg/dL (<2.0)
[2023-02-23 14:32] LABS: Add Urine Microscopic? YES
--- NOTE | 2023-02-23 15:19 | ED.FEMALEGU ---
HPI - Female Genitourinary General Chief complaint: Back Pain/Injury Stated complaint: back pain and vaginal itching Time Seen by Provider: 02/23/23 13:56 History of Present Illness HPI Narrative: Patient is a 27-year-old female presenting with several months of vaginal itching. States that it comes and goes and she tries her best to not scratch. States that sometimes it hurts with urination. Denies vaginal discharge or concern for STDs. She is and monogamous. Also complains of lower back pain when she wakes up in the morning that improves throughout the day. Denies fevers or chills, abdominal pain, nausea or vomiting, hematuria. Denies further complaints. Related Data Home Medications Medication Instructions Recorded Confirmed aspirin 81 mg chewable tablet 81 mg PO DAILY 05/28/22 07/17/22 vit no.95-ferrous 1 tablet PO HS 05/28/22 07/17/22 fumarate 28 mg-folic acid 800 mcg tablet () Allergies Allergy/AdvReac Type Severity Reaction Status Date / Time No Known Allergies Allergy Verified 08/24/22 19:51 Review of Systems Review of Systems: All systems reviewed & are unremarkable except as noted in HPI and below PMFSH Past Medical History Medical History Adult BMI 31.0-31.9 kg/sq m BMI 30.0-30.9,adult Hypothyroid Surgical History Surgical History No pertinent past surgical history Family History Family History Father Diabetes mellitus Social History Social History Smoking status: Never smoker Second hand tobacco smoke exposure: No Substance use: never Lack of Transportation: No Lack of Food: Never True Current Housing: I Have Housing Concerned About Future Housing: No Difficulty Paying Gas/Electric Bills: No Difficulty Paying for Meds: No Currently Unemployed: No Education: Bachelor's Degree Difficulty w/ Childcare or Family Care: No Spiritual care concerns: No Exam Narrative: GENERAL: Well-appearing, well-nourished, and in no acute distress. HEAD: Normocephalic, atraumatic. EYES: PERRLA and EOMI. ENT: Nares clear, no rhinorrhea or epistaxis. Mucous membranes moist. NECK: Supple. CHEST: No respiratory distress. HEART: Regular rate and rhythm ABDOMEN: Soft, nontender, nondistended EXTREMITIES: Normal range of motion. No edema. BACK: no midline tenderness, no flank tenderness SKIN: Warm, dry, no rash. NEURO: No focal deficits. Alert and oriented x3. PSYCH: Normal mood and affect. Course Vital Signs Vital signs: Vital Signs Temperature 97.7 F 02/23/23 13:35 Pulse Rate 96 02/23/23 13:35 Respiratory Rate 16 02/23/23 13:35 Blood Pressure 122/82 02/23/23 13:35 Pulse Oximetry 100 02/23/23 13:35 Oxygen Delivery Room Air 02/23/23 13:35 Temperature 97.7 F 02/23/23 13:35 Pulse Rate 75 02/23/23 16:05 Respiratory Rate 16 02/23/23 16:05 Blood Pressure 111/65 02/23/23 16:05 Pulse Oximetry 100 02/23/23 16:05 Oxygen Delivery Room Air 02/23/23 13:35 MDM - Female Genitourinary MDM Narrative Medical decision making narrative: Patient is a 27-year-old female presenting with chronic vaginal itching and lower back pain. Urine negative. UA with UTI. Pelvic exam with no lesions or bleeding. There is a moderate amount of thick white vaginal discharge concerning for yeast infection. We will cover her with a dose of Diflucan. Patient denies any concerns for STDs, do not feel that we need to treat empirically at this time. We have PCR and cultures pending. Patient follows with Dr. Sage, advised that she follow-up closely regarding her vaginal complaints. Also advised that she follow-up with her PCP for this chronic lower back pain. She denies any pain at this tulio
[2023-02-23] MEDS: FLUCONAZOLE 150 MG TABLET PO (16:02)
[2023-02-23] MEDS: CEPHALEXIN 500 MG CAPSULE PO (16:02)
[2023-02-23 16:05] VITALS: BP 111/65; PULSE 75; RESP 16; O2SAT 100
== END 2023-02-23 16:06 | disposition home or self-care (01) ==
PROVIDERS: Emergency Provider Emergency Medicine; PCP Family Medicine
DX: N76.0 Acute vaginitis (principal); N39.0 Urinary tract infection, site not specified; M54.9 Dorsalgia, unspecified; E03.9 Hypothyroidism, unspecified; Z79.82 Long term (current) use of aspirin
CPT/HCPCS: 81001; 81025; 87070; 87086; 87088; 87491; 87591; 87808; 99284; A9270